=== PATIENT | female | born 1985 | race Caucasian/White ===

== ENCOUNTER 2017-11-09 18:30 | Emergency (ER) | payer BC ==
[2017-11-09] MEDS ORDERED: Sodium Chloride 0.9% 10 ML Syringe FLUSH PRN ×2 (19:25→19:26)
[2017-11-09] MEDS ORDERED: Prochlorperazine 10 MG in Sodium Chloride 0.9% 50 ML IV ONE (19:25)
[2017-11-09] MEDS ORDERED: Ketorolac 60 MG/2 ML SDV IM ONE (19:25)
--- NOTE | 2017-11-09 20:36 | EDM.PDOC ---
ED HPI GENERAL MEDICAL PROBLEM - General Chief Complaint: Headache Stated Complaint: MIGRAINE Time Seen by Provider: 11/09/17 19:10 Source of Information: Reports: Patient History Limitations: Reports: No Limitations - History of Present Illness INITIAL COMMENTS - FREE TEXT/NARRATIVE: dictated Onset: Today Treatments BUTTONHOLER: Reports: Acetaminophen Left Headache Pain Score (Numeric/FACES): 9 - Related Data Allergies Allergy/AdvReac Type Severity Reaction Status Date / Time morphine Allergy Shaking Verified 11/09/17 18:49 Home Meds: Home Meds . [No Known Home Meds] 11/09/17 [History] Past Medical History - Past Surgical History GI Surgical History: Reports: Cholecystectomy Female Surgical History: Reports: Hysterectomy Social & Family History - Tobacco Use Smoking Status *Q: Current Every Day Smoker Years of Tobacco use: 24 Packs/Tins Daily: 0.5 - Caffeine Use Caffeine Use: Reports: Coffee, Soda Other Caffeine Use: soda rarely - Recreational Drug Use Recreational Drug Use: Yes Drug Use in Last 12 Months: No Recreational Drug Type: Reports: Methamphetamine ED ROS GENERAL - Review of Systems Review Of Systems: See Below - Physical Exam Exam: See Below Course - Vital Signs Last Recorded V/S: Last Vital Signs Temp 37.0 C 11/09/17 18:44 Pulse 76 11/09/17 18:44 Resp 18 11/09/17 18:44 BP 123/88 11/09/17 18:44 Pulse Ox 99 11/09/17 18:44 - Orders/Labs/Meds Orders: Active Orders 24 hr Category Date Time Status Peripheral IV Care [RC] . DIRECTED Care 11/09/17 19:27 Active Sodium Chloride 0.9% [Saline Flush] Med 11/09/17 19:25 Active 10 ml FLUSH ASDIRECTED PRN Sodium Chloride 0.9% [Saline Flush] Med 11/09/17 19:26 Active 10 ml FLUSH ASDIRECTED PRN Peripheral IV Insertion Adult [OM.PC] Routine Oth 11/09/17 19:26 Ordered Medication Orders Sodium Chloride (Saline Flush) 10 ml FLUSH ASDIRECTED PRN PRN Reason: Keep Vein Open Last Admin: 11/09/17 19:51 Dose: 10 ml Sodium Chloride (Saline Flush) 10 ml FLUSH ASDIRECTED PRN PRN Reason: Keep Vein Open Last Admin: 11/09/17 19:51 Dose: 10 ml Meds: Medications Generic Name Dose Route Start Last Admin Trade Name Екатерина PRN Reason Stop Dose Admin Sodium Chloride 10 ml 11/09/17 19:25 11/09/17 19:51 Saline Flush FLUSH 10 ml ASDIRECTED PRN Administration Keep Vein Open Sodium Chloride 10 ml 11/09/17 19:26 11/09/17 19:51 Saline Flush FLUSH 10 ml ASDIRECTED PRN Administration Keep Vein Open Discontinued Medications Generic Name Dose Route Start Last Admin Trade Name Frepuja PRN Reason Stop Dose Admin Prochlorperazine Edisylate 10 52 mls @ 150 mls/hr 11/09/17 19:25 11/09/17 19: 46 mg/ Sodium Chloride IV 11/09/17 19:45 150 mls/hr ONETIME ONE Administration Ketorolac Tromethamine 60 mg 11/09/17 19:25 11/09/17 19:49 Toradol IM 11/09/17 19:26 60 mg ONETIME ONE Administration Departure - Departure Time of Disposition: 20:35 Disposition: Home, Self-Care 01 Condition: Good Clinical Impression: Migraine - Discharge Information *PRESCRIPTION DRUG MONITORING PROGRAM REVIEWED*: Not Applicable *COPY OF PRESCRIPTION DRUG MONITORING REPORT IN PATIENT BALA: Not Applicable Referrals: PCP,None [Primary Care Provider] - Additional Instructions: Followup with provider, as we discussed. - My Orders Last 24 Hours: My Active Orders 11/09/17 19:25 Sodium Chloride 0.9% [Saline Flush] 10 ml FLUSH ASDIRECTED PRN 11/09/17 19:26 Sodium Chloride 0.9% [Saline Flush] 10 ml FLUSH ASDIRECTED PRN Peripheral IV Insertion Adult [OM.PC] Routine 11/09/17 19:27 Peripheral IV Care [RC] . DIRECTED - Assessment/Plan Last 24 Hours: My Active Orders 11/09/17 19:25 Sodium Chloride 0.9% [Saline Flush] 10 ml FLUSH ASDIRECTED PRN 11/09/17 19:26 Sodium Chloride 0.9% [Saline Flush] 10 ml FLUSH ASDIRECTED PRN Peripheral IV Insertion Adult [OM.PC] Routine 11/09/17 19:27 Peripheral IV Care [RC] . DIRECTED
--- NOTE | 2017-11-10 01:19 | ER ---
REASON FOR EMERGENCY ROOM VISIT: Migraine headache. HISTORY OF PRESENT ILLNESS: This 31-year-old woman comes to the ER with a 2-day history of what she thinks is a migraine headache. Apparently, she has a history of migraines dating back 14 years ago. Oftentimes, her migraines are triggered by sunlight. She has never been on any Imitrex or similar drugs. Usually, she takes Tylenol for it and avoids triggers such as sunlight or loud noise. Her last migraine was noteworthy in that this occurred a year ago, and she had a severe migraine that was associated with a seizure. She tells me that this was while she was in [place], and she was worked up fairly extensively and that included a CT scan, and at the end of this, she was told this was all related to her migraine headache complex. Her migraine came on somewhat gradually and has been located slightly to the left of the midline over the vertex area of the scalp. Her symptoms of headache are worsened by light or moving around or loud noise. She has had some nausea, but no vomiting. She has not had any visual symptoms. Denies any numbness, tingling, or weakness. Tylenol has helped, but her headache does not go away completely, and it seems to be worse this evening than it was this morning. ALLERGIES: She is allergic to morphine sulfate. PAST MEDICAL HISTORY: Reviewed. To summarize, she has had a tubal ligation in 2005 and a laparoscopic cholecystectomy in 2014. She is 5, para 4. Her last normal menstrual period was on 10/21/2017. SOCIAL HISTORY: She lives with her mother and father and two of her children. She smokes one- half pack per day. She denies any alcohol or illicit drug use. CURRENT MEDICATIONS: None except for p.r.n. Tylenol. REVIEW OF SYSTEMS: Pertinent positives and negatives as listed in the HPI. PHYSICAL EXAMINATION: GENERAL: She is lying in a dark room with her eyes covered. She is cooperative and obviously uncomfortable. VITAL SIGNS: She is afebrile. Heart rate 76, blood pressure 123/88, respiratory rate 18, O2 saturations 99% on room air. HEENT: Normocephalic. No temporal artery tenderness. TMs are normal. Eyes: Pupils equally round and reactive to light and accommodation. Nose: No conjunctival injection. Oropharynx is normal. NECK: Supple. No bruits. No tenderness to passive range of motion. CHEST: Clear to auscultation. CARDIAC: Regular rate without murmur. NEUROLOGIC: Cranial nerves 2 through 12 are intact. Deep tendon reflexes are symmetrical bilaterally in the upper and lower extremities. Muscle strength is symmetrical in the upper and lower extremities. Sensory exam is normal on crude touch. Station and gait were not tested. IMPRESSION: Migraine headache. FURTHER EMERGENCY ROOM COURSE: A heparin lock IV was started. She was given 25 mg of IV Benadryl as well as 60 mg of IV Toradol and 10 mg of IV Compazine. Fairly promptly, within a matter of half hour, her symptoms completely resolved, and she was eager to go home. PLAN: She will be discharged and told to take Tylenol as needed for her headache. The importance of establishing her own provider was emphasized to her in light of the potential for ongoing medical needs in addition to her migraine headache prevention and management. All questions were answered. She understands and agrees with this plan. JAMIE /[id number]
== END 2017-11-09 20:42 | disposition home or self-care (01) ==
LOC: JD.ED 18:30
DX: G43.909 Migraine, unspecified, not intractable, without status migrainosus (principal); Z88.5 Allergy status to narcotic agent; F17.210 Nicotine dependence, cigarettes, uncomplicated
CPT/HCPCS: 96365; 96372; 99284; J0780; J1885; J7050

== ENCOUNTER 2018-06-22 10:21 | Emergency (ER) | payer BC ==
--- NOTE | 2018-06-22 11:44 | EDM.PDOC ---
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 She reports this sensation lasted for approximally 45 minutes. She states she went to the break room to relax when another co-worker recommended she come to the ER for further evaluation. She denies headache, fever, chills. 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 She has not had any seizures since this time. She reports she is over healthy. She does have a history of anxiety. She is accompanied by her mother. Her PCP is Dr. Baker. Onset: Today, Sudden Onset Date: 06/22/18 Onset Time: 09:00 Duration: Resolved Prior to Arrival Improves with: Reports: None, Medication Associated Symptoms: Reports: Syncope. Denies: Confusion, Chest Pain, Fever/ Chills, Headaches, Nausea/Vomiting, Shortness of Breath - Related Data Allergies Allergy/AdvReac Type Severity Reaction Status Date / Time morphine Allergy Shaking Verified 11/09/17 18:49 Home Meds: Home Meds . 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: Musculoskeletal History: Reports: None Neurological History: Reports: Migraines Psychiatric History: Reports: None Endocrine/Metabolic History: Reports: None Hematologic History: Reports: None Immunologic History: Reports: None Oncologic (Cancer) History: Reports: None Dermatologic History: Reports: None - Infectious Disease History Infectious Disease History: Reports: None - Past Surgical History HEENT Surgical History: Reports: Oral Surgery GI Surgical History: Reports: Cholecystectomy Neurological Surgical History: Reports: None Musculoskeletal Surgical History: Reports: None Social & Family History - Family History Family Medical History: Noncontributory Cardiac: Reports: High Cholesterol, Hypertension Respiratory: Reports: None Neurological: Reports: Migraines Endocrine/Metabolic: Reports: Diabetes, type II, Hypothyroidism Oncologic: Reports: Breast, Liver, Lung, Thyroid - Tobacco Use Smoking Status *Q: Current Every Day Smoker Years of Tobacco use: 19 Packs/Tins Daily: 1 - Caffeine Use Caffeine Use: Reports: Coffee, Soda Other Caffeine Use: soda rarely - Recreational Drug Use Recreational Drug Use: No ED ROS GENERAL - Review of Systems Review Of Systems: See Below Constitutional: Denies: Fever, Chills, Fatigue HEENT: Reports: No Symptoms Respiratory: Denies: Shortness of Breath Cardiovascular: Denies: Chest Pain Endocrine: Reports: No Symptoms GI/Abdominal: Reports: No Symptoms : Reports: No Symptoms Musculoskeletal: Reports: No Symptoms Skin: Reports: No Symptoms Neurological: Reports: Dizziness. Denies: Headache, Numbness Psychiatric: Reports: Anxiety Hematologic/Lymphatic: Reports: No Symptoms Immunologic: Reports: No Symptoms ED EXAM, NEURO - Physical Exam Exam: See Below Exam Limited By: No Limitations General Appearance: Alert, WD/WN, No Apparent Distress Ears: Normal External Exam, Normal Canal, Hearing Grossly Normal, Normal TMs Nose: Normal Inspection, Normal Mucosa, No Blood Throat/Mouth: Normal Inspection, Normal Lips, Normal Teeth, Normal Gums, Normal Oropharynx, Normal Voice, No Airway Compromise Head Exam: Atraumatic, Normocephalic Neck: Normal Inspection, Supple, Non-Tender, Full Range of Motion Respiratory/Chest: No Respiratory Distress, Lungs Clear, Normal Breath Sounds, No Accessory Muscle Use, Chest Non-Tender Cardiovascular: Normal Peripheral Pulses, Regular Rate, Rhythm, No Edema, No Gallop, No JVD, No Murmur, No Rub Neurological: Alert, Normal Mood/Affect, Normal Dorsiflexion, CN II-XII Intact, Normal Plantar Flexion, Normal Gait, Normal Reflexes, No Motor/Sensory Deficits , Oriented x 3 Back Exam: Normal Inspection, Full Range of Motion Extremities: Normal Inspection, Normal Range of Motion, Non-Tender, No Pedal Edema, Normal Capillary Refill Psychiatric: Normal Affect, Normal Mood Skin Exam: Warm, Dry, Intact, Normal Color, No Rash *Q Meaningful Use (ADM) - VTE Risk Assess *Q Each Risk Factor Represents 1 Point: None Total Score 1 Point Risk Factors: 0 Each Risk Factor Represents 2 Points: None Total Score 2 Point Risk Factors: 0 Each Risk Factor Represents 3 Points: None Total Score 3 Point Risk Factors: 0 Each Risk Factor Represents 5 Points: None Total Score 5 Point Risk Factors: 0 Venous Thromboembolism Risk Factor Score *Q: 0 Course - Vital Signs Last Recorded V/S: Last Vital Signs Temp 36.8 C 06/22/18 10:39 Pulse 86 06/22/18 10:39 Resp 18 06/22/18 10:39 BP 115/83 06/22/18 10:39 Pulse Ox 99 06/22/18 10:39 Orthostatic Blood Pressure [ 105/75 Standing] Orthostatic Blood Pressure [ 109/73 Sitting] Orthostatic Blood Pressure [ 105/72 Supine] - Orders/Labs/Meds Orders: Active Orders 24 hr Category Date Time Status Orthostatic Vital Signs [RC] ASDIRECTED Care 06/22/18 11:34 Active Labs: Laboratory Tests 06/22/18 06/22/18 Range/Units 11:50 11:50 WBC 8.22 (3.98-10.04) K/mm3 RBC 5.03 (3.98-5.22) M/mm3 Hgb 14.2 (11.2-15.7) gm/L Hct 41.8 (34.1-44.9) % MCV 83.1 (79.4-94.8) fl MCH 28.2 (25.6-32.2) pg MCHC 34.0 (32.2-35.5) g/dl RDW Std Deviation 41.9 (36.4-46.3) fL Plt Count 369 (182-369) K/mm3 MPV 8.5 L (9.4-12.3) fl Neut % (Auto) 57.7 (34.0-71.1) % Lymph % (Auto) 34.4 (19.3-51.7) % [place] % (Auto) 5.0 (4.7-12.5) % Eos % (Auto) 2.1 (0.7-5.8) Baso % (Auto) 0.7 (0.1-1.2) % Neut # (Auto) 4.74 (1.56-6.13) K/mm3 Lymph # (Auto) 2.83 (1.18-3.74) K/mm3 [place] # (Auto) 0.41 H (0.24-0.36) K/mm3 Eos # (Auto) 0.17 (0.04-0.36) K/mm3 Baso # (Auto) 0.06 (0.01-0.08) K/mm3 Sodium 141 (136-145) mEq/L Potassium 3.9 (3.5-5.1) mEq/L Chloride 106 (98-107) mEq/L Carbon Dioxide 25 (21-32) mEq/L Anion Gap 13.9 (5-15) BUN 11 (7-18) mg/dL Creatinine 0.7 (0.55-1.02) mg/dL Est Cr Clr Drug Dosing 93.68 mL/min Estimated GFR (MDRD) > 60 (>60) mL/min BUN/Creatinine Ratio 15.7 (14-18) Glucose 95 (74-106) mg/dL Calcium 9.4 (8.5-10.1) mg/dL Total Bilirubin 0.5 (0.2-1.0) mg/dL AST 13 L (15-37) U/L ALT 20 (14-59) U/L Alkaline Phosphatase 37 L (46-116) U/L Total Protein 6.8 (6.4-8.2) g/dl Albumin 3.9 (3.4-5.0) g/dl Globulin 2.9 gm/dL Albumin/Globulin Ratio 1.3 (1-2) - Re-Assessments/Exams Free Text/Narrative Re-Assessment/Exam: 06/22/18 12:38 WBC is 8.22 H&H 14.2 and 41.8. Sodium 141 potassium 3.9 chloride 106 CO2 25.11 creatinine 0.7, AST 13 ALT 20 alkaline phosphatase 37. 32-year-old female presents to emergency with chief complaints of feeling lightheaded shakes, foggy and right arm tensing up. I don't feel her symptoms were due to a seizure. Differential diagnosis include but are not limited to anxiety, dehydration, pseudoseizure. I will discharge home with instructions to follow up with her PCP for further evaluation. Instructed the patient to return to the emergency room for any new or acutely worsening symptoms. Patient verbalized understanding and is comfortable plan for discharge. Patient is stable at time of discharge. Departure - Departure Time of Disposition: 12:42 Disposition: Home, Self-Care 01 Condition: Good Clinical Impression: Light-headed feeling - Discharge Information *PRESCRIPTION DRUG MONITORING PROGRAM REVIEWED*: Not Applicable *COPY OF PRESCRIPTION DRUG MONITORING REPORT IN PATIENT BALA: Not Applicable Instructions: Panic Attack, [id number], Near-Syncope, [id number], Dizziness , [id number] Referrals: PCP,None [Family Provider] - Forms: ED Department Discharge Additional Instructions: You have been diagnosis with dizziness and near syncope episode. This could be related to anxiety or dehydration. I don't feel your symptoms were due to a seizure. I recommend that he follow up with your PCP for further evaluation and treatment. Return to the emergency room for any new or acutely worsening symptoms. <Girish Garay - Last Filed: 06/22/18 18:47> Course - Re-Assessments/Exams Free Text/Narrative Re-Assessment/Exam: 06/22/18 18:47 Case discussed with Jami Clemente NP, and I agree with her evaluation and plan of care.
== END 2018-06-22 13:12 | disposition home or self-care (01) ==
LOC: JD.ED 10:21
DX: R42 Dizziness and giddiness (principal); F17.210 Nicotine dependence, cigarettes, uncomplicated; Z88.5 Allergy status to narcotic agent
CPT/HCPCS: 36415; 80053; 85025; 99283

== ENCOUNTER 2019-02-06 08:59 | Emergency (ER) | payer BC ==
[2019-02-06] MEDS ORDERED: Ketorolac 60 MG/2 ML SDV IVPUSH ONE (09:38)
[2019-02-06] MEDS ORDERED: diphenhydrAMINE 50 MG/ML SDV IVPUSH ONE (09:38)
[2019-02-06] MEDS ORDERED: Prochlorperazine 10 MG/2 ML SDV IVPUSH ONE (09:39)
[2019-02-06] MEDS ORDERED: Sodium Chloride 0.9% 10 ML Syringe FLUSH PRN (09:40)
--- NOTE | 2019-02-06 09:44 | EDM.PDOC ---
ED HPI GENERAL MEDICAL PROBLEM - General Chief Complaint: Headache Stated Complaint: HEADACHE Time Seen by Provider: 02/06/19 09:30 Source of Information: Reports: Patient History Limitations: Reports: Other - History of Present Illness INITIAL COMMENTS - FREE TEXT/NARRATIVE: patient is a 33-year-old female who presents to the emergency department after being sent here from the [facility] complaints of headache, "spotty " vision, and right hand tingling that started this morning. The patient does have a history of chronic migraines and states that this headache is similar to those that she's had in the past, however she does not normally sees spots when she has her migraines. Headache begins at midline above her eyes and wraps over the midline top of her head. She states that she awoke with this pain this morning. She does have some nausea associated with it however she has not vomited. She is not sensitive to light or sounds. She has had a thorough neurologic workup when she was in [place] which she believes did include a CT scan of her head at that time. She was told that there was nothing acute and that her symptoms were all related to her migraine syndrome. Her primary care provider is Karyn Amaro. She does verbalize a history of seizures however she is not on any medications for this. She has never required a daily medication for her migraine treatment. And she has not been referred to a neurologist. 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: Musculoskeletal History: Reports: None Neurological History: Reports: Migraines Psychiatric History: Reports: None Endocrine/Metabolic History: Reports: None Hematologic History: Reports: None Immunologic History: Reports: None Oncologic (Cancer) History: Reports: None Dermatologic History: Reports: None - Infectious Disease History Infectious Disease History: Reports: None - Past Surgical History HEENT Surgical History: Reports: Oral Surgery GI Surgical History: Reports: Cholecystectomy Neurological Surgical History: Reports: None Musculoskeletal Surgical History: Reports: None Social & Family History - Family History Family Medical History: Noncontributory Cardiac: Reports: High Cholesterol, Hypertension Respiratory: Reports: None Neurological: Reports: Migraines Endocrine/Metabolic: Reports: Diabetes, type II, Hypothyroidism Oncologic: Reports: Breast, Liver, Lung, Thyroid - Caffeine Use Caffeine Use: Reports: Coffee, Soda Other Caffeine Use: soda rarely ED ROS GENERAL - Review of Systems Review Of Systems: See Below Constitutional: Reports: No Symptoms. Denies: Fever, Chills, Weakness HEENT: Reports: Vision Change (spots in her vision). Denies: Vertigo Respiratory: Reports: No Symptoms Cardiovascular: Reports: No Symptoms Endocrine: Reports: No Symptoms GI/Abdominal: Reports: Nausea. Denies: Abdominal Pain, Diarrhea, Vomiting : Reports: No Symptoms Musculoskeletal: Reports: No Symptoms Skin: Reports: No Symptoms Neurological: Reports: Headache, Tingling. Denies: Confusion, Dizziness, Seizure, Syncope, Trouble Speaking, Difficulty Walking, Weakness, Change in Speech, Gait Disturbance Psychiatric: Reports: No Symptoms Hematologic/Lymphatic: Reports: No Symptoms Immunologic: Reports: No Symptoms - Physical Exam Exam: See Below Exam Limited By: No Limitations General Appearance: Alert, WD/WN, No Apparent Distress Eye Exam: Bilateral Eye: PERRL (no nystagmus present), Vision Changes ("spots" in her vision) Head Exam: Atraumatic, Normocephalic Respiratory/Chest: No Respiratory Distress, Lungs Clear, Normal Breath Sounds, No Accessory Muscle Use, Chest Non-Tender Cardiovascular: Normal Peripheral Pulses, Regular Rate, Rhythm, No Edema, No Murmur GI/Abdominal: Normal Bowel Sounds, Soft, Non-Tender, No Organomegaly, No Distention, No Mass Neuro Exam (Abbreviated): Alert, Oriented, CN II-XII Intact, Normal Cognition, No Motor/Sensory Deficits. No: Confused, Slow to Respond, Memory Loss Remote Events, Memory Loss Recent Events Psychiatric: Normal Affect, Normal Mood Skin Exam: Warm, Dry, Intact, Normal Color, No Rash Course - Vital Signs Last Recorded V/S: Last Vital Signs Temp 98.1 F 02/06/19 09:13 Pulse 83 02/06/19 09:13 Resp 16 02/06/19 09:13 BP 109/86 02/06/19 09:13 Pulse Ox 99 02/06/19 09:13 - Orders/Labs/Meds Orders: Active Orders 24 hr Category Date Time Status Peripheral IV Care [RC] . DIRECTED Care 02/06/19 09:41 Active Peripheral IV Insertion Adult [OM.PC] Stat Oth 02/06/19 09:40 Ordered Meds: Medications Discontinued Medications Generic Name Dose Route Start Last Admin Trade Name Freq PRN Reason Stop Dose Admin Diphenhydramine HCl 25 mg 02/06/19 09:38 02/06/19 09:56 Benadryl IVPUSH 02/06/19 09:39 25 mg ONETIME ONE Administration Sodium Chloride 1,000 mls @ 999 mls/hr 02/06/19 09:45 02/06/19 09:54 Normal Saline IV 999 mls/hr ASDIRECTED ALHAJI Administration Ketorolac Tromethamine 30 mg 02/06/19 09:38 02/06/19 09:54 Toradol IVPUSH 02/06/19 09:39 30 mg ONETIME ONE Administration Lorazepam 0.5 mg 02/06/19 10:10 02/06/19 10:20 Ativan IVPUSH 02/06/19 10:11 0.5 mg ONETIME ONE Administration Prochlorperazine Edisylate 6 mg 02/06/19 09:39 02/06/19 09:53 Compazine IVPUSH 02/06/19 09:40 6 mg ONETIME ONE Administration Sodium Chloride 10 ml 02/06/19 09:40 02/06/19 09:56 Saline Flush FLUSH 10 ml ASDIRECTED PRN Administration Keep Vein Open - Re-Assessments/Exams Free Text/Narrative Re-Assessment/Exam: patient is a 33-year-old female who presents with complaints of headache, tingling in her right hand, and seeing spots. She does have a history of recurrent migraines and states that this is fairly similar to the headaches she has had in the past, however she normally doesn't see spots. She has been successfully treated in our ER in the past with Toradol, Compazine, and Benadryl and she does state that combination worked well for her. I will order Toradol 30 mg IV, Compazine 6 mg IV, Benadryl 25 mg, and a 1 L saline bolus. Free Text/Narrative Re-Assessment/Exam: 02/06/19 10:10 nursing staff notified this provider that the patient is feeling increasingly anxious and panicky after the medication administration. I did visit with the patient she feels like she had a mild panic attack. This may be a reaction to the Compazine. I have ordered Ativan 0.5 mg IV to be given. Free Text/Narrative Re-Assessment/Exam: 02/06/19 10:39 I did reassess the patient. She is feeling better. Her headache has resolved her vision is no longer spotty, and her hand is no longer tingling. She would like to go home at this time. I did advise her to go home and rest in a quiet dark room. I will provide her with a work note for today. Departure - Departure Time of Disposition: 10:39 Disposition: Home, Self-Care 01 Condition: Fair Clinical Impression: Migraine - Discharge Information *PRESCRIPTION DRUG MONITORING PROGRAM REVIEWED*: No *COPY OF PRESCRIPTION DRUG MONITORING REPORT IN PATIENT BALA: No Instructions: Recurrent Migraine Headache, [id number] Referrals: Karyn Baker NP [Primary Care Provider] - Forms: ED Department Discharge, ED Return to Work/School Form Additional Instructions: You were seen in the emergency Department today with complaints of a headache, nausea, spots in your vision, and tingling in your right hand. You did receive Toradol, Benadryl, Compazine, and Ativan. These medications did improve your symptoms. We recommend that at this time you go home and rest in a quiet dark room. Ensure that you are receiving adequate fluid intake. A note has been provided for you for work today. If you experience any new or worsening symptoms please do not hesitate to return to the ER. - My Orders Last 24 Hours: My Active Orders 02/06/19 09:40 Peripheral IV Insertion Adult [OM.PC] Stat 02/06/19 09:41 Peripheral IV Care [RC] . DIRECTED - Assessment/Plan Last 24 Hours: My Active Orders 02/06/19 09:40 Peripheral IV Insertion Adult [OM.PC] Stat 02/06/19 09:41 Peripheral IV Care [RC] . DIRECTED
[2019-02-06] MEDS ORDERED: Sodium Chloride 0.9% 1,000 ML IV SCH (09:45)
[2019-02-06] MEDS ORDERED: LORazepam 2 MG/ML SDV IVPUSH ONE (10:10)
== END 2019-02-06 10:49 | disposition home or self-care (01) ==
LOC: JD.ED 08:59
DX: G43.909 Migraine, unspecified, not intractable, without status migrainosus (principal); Z88.5 Allergy status to narcotic agent
CPT/HCPCS: 96361; 96374; 96375; 99283; J0780; J1200; J1885; J2060; J7040

== ENCOUNTER 2019-08-28 07:11 | Emergency (ER) | payer BC ==
--- NOTE | 2019-08-28 07:55 | EDM.PDOC ---
ED HPI GENERAL MEDICAL PROBLEM - General Chief Complaint: Syncope Stated Complaint: SYNCOPE EPISODE Time Seen by Provider: 08/28/19 07:32 Source of Information: Reports: Patient History Limitations: Reports: No Limitations - History of Present Illness INITIAL COMMENTS - FREE TEXT/NARRATIVE: The patient presents with syncope. 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 She was lightheaded. She drank some water and then she passed out. She was out for a couple of minutes. This has happened a few times before. She first started having problems about a year ago. She sees Karyn at [facility] [place] [facility] and she was found to be hypothyroid. She is being treated for that but it did not help. She had an echo done last week. She was told there was an area where there was some pooling of blood. I am not sure what that means. Karyn is trying to get her in to see cardiology. She has no fever, chills, cough, congestion, runny nose, chest pain, shortness of breath, abdominal pain, nausea or vomiting. She has no other health problems. She also had a holter monitor on. Onset: Sudden Duration: Minutes: Severity: Moderate Improves with: Reports: None Worsens with: Reports: None Associated Symptoms: Reports: No Other Symptoms - Related Data Allergies Allergy/AdvReac Type Severity Reaction Status Date / Time morphine Allergy Shaking Verified 08/28/19 07:27 Home Meds: Home Meds Ondansetron [Zofran ODT] 4 mg SL Q6H PRN 08/28/19 [History] SUMAtriptan [Imitrex] 25 mg PO ASDIRECTED PRN 08/28/19 [History] Thyroid [Brant Thyroid] 15 mg PO DAILY 08/28/19 [History] Past Medical History HEENT History: Reports: None Cardiovascular History: Reports: Other (See Below) Other Cardiovascular History: heart is not pumping all the way Respiratory History: Reports: None Gastrointestinal History: Reports: None Genitourinary History: Reports: UTI, 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: Musculoskeletal History: Reports: None Neurological History: Reports: Migraines Psychiatric History: Reports: None Endocrine/Metabolic History: Reports: None Hematologic History: Reports: None Immunologic History: Reports: None Oncologic (Cancer) History: Reports: None Dermatologic History: Reports: None - Infectious Disease History Infectious Disease History: Reports: None - Past Surgical History HEENT Surgical History: Reports: Oral Surgery GI Surgical History: Reports: Cholecystectomy Neurological Surgical History: Reports: None Musculoskeletal Surgical History: Reports: None Social & Family History - Family History Family Medical History: Noncontributory Cardiac: Reports: High Cholesterol, Hypertension Respiratory: Reports: None Neurological: Reports: Migraines Endocrine/Metabolic: Reports: Diabetes, type II, Hypothyroidism Oncologic: Reports: Breast, Liver, Lung, Thyroid - Tobacco Use Smoking Status *Q: Never Smoker - Caffeine Use Caffeine Use: Reports: None Other Caffeine Use: soda rarely - Recreational Drug Use Recreational Drug Use: No ED ROS GENERAL - Review of Systems Review Of Systems: See Below Constitutional: Reports: No Symptoms HEENT: Reports: No Symptoms Respiratory: Reports: No Symptoms Cardiovascular: Reports: Syncope. Denies: Chest Pain, Palpitations Endocrine: Reports: No Symptoms GI/Abdominal: Reports: No Symptoms : Reports: No Symptoms Musculoskeletal: Reports: No Symptoms Skin: Reports: No Symptoms Neurological: Reports: No Symptoms Psychiatric: Reports: No Symptoms - Physical Exam Exam: See Below Exam Limited By: No Limitations General Appearance: Alert, No Apparent Distress Ears: Normal External Exam Nose: Normal Inspection Head Exam: Atraumatic, Normocephalic Neck: Normal Inspection Respiratory/Chest: No Respiratory Distress, Lungs Clear, Normal Breath Sounds Cardiovascular: Regular Rate, Rhythm, No Edema, No Murmur GI/Abdominal: Soft, Non-Tender, No Organomegaly, No Mass Neuro Exam (Abbreviated): Alert, Oriented, No Motor/Sensory Deficits EKG INTERPRETATION EKG Date: 08/28/19 Time: 08:16 Rhythm: NSR Rate (Beats/Min): 65 [place]: Normal P-Wave: Present QRS: Normal ST-T: Normal QT: Normal Course - Vital Signs Last Recorded V/S: Last Vital Signs Temp 98.1 F 08/28/19 07:24 Pulse 87 08/28/19 07:24 Resp 15 08/28/19 07:24 BP 119/81 08/28/19 07:24 Pulse Ox 98 08/28/19 07:24 - Orders/Labs/Meds Orders: Active Orders 24 hr Category Date Time Status Cardiac Monitoring [RC] . DIRECTED Care 08/28/19 07:48 Active EKG Documentation Completion [RC] STAT Care 08/28/19 07:49 Active Labs: Laboratory Tests 08/28/19 08/28/19 Range/Units 08:00 08:00 WBC 8.42 (3.98-10.04) K/mm3 RBC 5.27 H (3.98-5.22) M/mm3 Hgb 14.8 (11.2-15.7) gm/dl Hct 43.6 (34.1-44.9) % MCV 82.7 (79.4-94.8) fl MCH 28.1 (25.6-32.2) pg MCHC 33.9 (32.2-35.5) g/dl RDW Std Deviation 41.2 (36.4-46.3) fL Plt Count 321 (182-369) K/mm3 MPV 8.7 L (9.4-12.3) fl Neut % (Auto) 61.9 (34.0-71.1) % Lymph % (Auto) 28.1 (19.3-51.7) % [place] % (Auto) 5.9 (4.7-12.5) % Eos % (Auto) 3.0 (0.7-5.8) Baso % (Auto) 1.0 (0.1-1.2) % Neut # (Auto) 5.21 (1.56-6.13) K/mm3 Lymph # (Auto) 2.37 (1.18-3.74) K/mm3 [place] # (Auto) 0.50 H (0.24-0.36) K/mm3 Eos # (Auto) 0.25 (0.04-0.36) K/mm3 Baso # (Auto) 0.08 (0.01-0.08) K/mm3 Sodium 142 (136-145) mEq/L Potassium 4.1 (3.5-5.1) mEq/L Chloride 106 (98-107) mEq/L Carbon Dioxide 25 (21-32) mEq/L Anion Gap 15.1 H (5-15) BUN 12 (7-18) mg/dL Creatinine 0.8 (0.55-1.02) mg/dL Est Cr Clr Drug Dosing 81.19 mL/min Estimated GFR (MDRD) > 60 (>60) mL/min BUN/Creatinine Ratio 15.0 (14-18) Glucose 96 (74-106) mg/dL Calcium 9.0 (8.5-10.1) mg/dL Total Bilirubin 0.6 (0.2-1.0) mg/dL AST 15 (15-37) U/L ALT 19 (14-59) U/L Alkaline Phosphatase 36 L (46-116) U/L Troponin I < 0.017 (0.00-0.056) ng/mL Total Protein 6.9 (6.4-8.2) g/dl Albumin 4.0 (3.4-5.0) g/dl Globulin 2.9 gm/dL Albumin/Globulin Ratio 1.4 (1-2) - Re-Assessments/Exams Free Text/Narrative Re-Assessment/Exam: 08/28/19 07:57 I ordered an EKG and labs. 08/28/19 09:01 Her EKG shows a NSR with nothing acute. Her CBC and CMP look good. Her troponin is normal. I will have her off work for a week or until she can see cardiology. Departure - Departure Time of Disposition: 09:05 Disposition: Home, Self-Care 01 Condition: Good Clinical Impression: Syncope Qualifiers: Syncope type: unspecified Qualified Code(s): R55 - Syncope and collapse - Discharge Information *PRESCRIPTION DRUG MONITORING PROGRAM REVIEWED*: Not Applicable *COPY OF PRESCRIPTION DRUG MONITORING REPORT IN PATIENT BALA: Not Applicable Referrals: Krayn Baker, [employer] [Primary Care Provider] - Forms: ED Department Discharge, ED Return to Work/School Form Additional Instructions: Follow up with Karyn and see when she can get you in to see cardiology. Avoid any heavy lifting. Please return if you are worse. Sepsis Event Note (ED) - Evaluation Sepsis Screening Result: No Definite Risk - Focused Exam Vital Signs: Vital Signs Temp Pulse Resp BP Pulse Ox 08/28/19 07:24 98.1 F 87 15 119/81 98 - My Orders Last 24 Hours: My Active Orders 08/28/19 07:48 Cardiac Monitoring [RC] . DIRECTED 08/28/19 07:49 EKG Documentation Completion [RC] STAT - Assessment/Plan Last 24 Hours: My Active Orders 08/28/19 07:48 Cardiac Monitoring [RC] . DIRECTED 08/28/19 07:49 EKG Documentation Completion [RC] STAT
== END 2019-08-28 09:06 | disposition home or self-care (01) ==
LOC: JD.ED 07:11
DX: R55 Syncope and collapse (principal); G43.909 Migraine, unspecified, not intractable, without status migrainosus; Z88.5 Allergy status to narcotic agent; Z79.899 Other long term (current) drug therapy
CPT/HCPCS: 36415; 80053; 84484; 85025; 93005; 93010; 99283; 99284-25

== ENCOUNTER 2021-04-22 19:34 | Emergency (ER) | payer BC ==
[2021-04-22] MEDS ORDERED: Sodium Chloride 0.9% 10 ML Syringe FLUSH PRN (19:55)
[2021-04-22] MEDS ORDERED: Sodium Chloride 0.9% 1,000 ML IV STA (20:04)
[2021-04-22] MEDS ORDERED: Ondansetron 4 MG/2 ML SDV IVPUSH ONE (20:04)
[2021-04-22] MEDS ORDERED: HYDROmorphone 0.5 MG/0.5 ML Syringe IVPUSH ONE ×2 (20:04→20:43)
[2021-04-22] MEDS ORDERED: Ketorolac 30 MG/ML SDV IVPUSH ONE (20:06)
[2021-04-22] MEDS ORDERED: LORazepam 2 MG/ML SDV IVPUSH ONE (20:43)
[2021-04-22] MEDS ORDERED: LORazepam 2 MG/ML SDV ONE (20:45)
== END 2021-04-22 23:10 | disposition left against medical advice (07) ==
LOC: JD.ED 19:34
DX: M54.50 Low back pain, unspecified (principal); Z88.5 Allergy status to narcotic agent; Z79.82 Long term (current) use of aspirin
CPT/HCPCS: 36415; 74177; 80053; 80306; 81001; 81025; 83605; 84484; 85025; 86140; 87040; 93005; 96374; 96375; 96376; 99284; J1170; J1885; J2060; J2405; J7030

== ENCOUNTER 2021-10-23 08:55 | Emergency (ER) | payer BC ==
[2021-10-23] MEDS ORDERED: Sodium Chloride 0.9% 10 ML Syringe FLUSH PRN (09:18)
[2021-10-23] MEDS ORDERED: Ketorolac 30 MG/ML SDV IVPUSH ONE (09:19)
[2021-10-23] MEDS ORDERED: HYDROmorphone 1 MG/ML Syringe IVPUSH ONE (09:19)
[2021-10-23] MEDS ORDERED: Ibuprofen 600 MG Tab PO ONE (09:23)
[2021-10-23] MEDS ORDERED: Sodium Chloride 0.9% 1,000 ML IV SCH (09:30)
[2021-10-23 10:41] LABS: CORONAVIRUS COVID-19 NAA POSITIVE (NEGATIVE)
== END 2021-10-23 09:30 | disposition home or self-care (01) ==
LOC: JD.ED 08:55
DX: U07.1 COVID-19 (principal); J06.9 Acute upper respiratory infection, unspecified; Z88.6 Allergy status to analgesic agent; Z79.899 Other long term (current) drug therapy; Z90.49 Acquired absence of other specified parts of digestive tract; Z90.710 Acquired absence of both cervix and uterus
CPT/HCPCS: 0241U; 99284; A9270-GY